=== PATIENT | male | born 1985 | race Caucasian/White ===

== ENCOUNTER 2018-11-15 14:46 | Inpatient (IN) | payer MEDICAID, OTHER | END 2018-11-16 13:10 | disposition left against medical advice (07) | LOC: ER 14:46 → OVERFLOW 23:04 → EAST 23:37 ==

== ENCOUNTER 2023-07-10 03:12 | Inpatient (IN) | payer MEDICAID ==
[~2023-07-10] VITALS: Ht 182.9 cm; Wt 76.0 kg
[2023-07-10 03:45] VITALS: PULSE 76; RESP 17; O2SAT 96
[2023-07-10] MEDS ORDERED: LACTATED RINGER'S 1,000 ML IV ONE (05:45)
[2023-07-10] MEDS ORDERED: CEFTRIAXONE SODIUM 2 GM in D5W 5% 100 ML IV ONE (05:45)
[2023-07-10] MEDS ORDERED: NALOXONE HCL 1MG/ML 2ML SYRINGE IV ONE ×2 (06:15)
[2023-07-10 06:46] LABS: Amphetamine Screen, Urine Pos (NEGATIVE); Barbiturate Scree,Urine Neg (NEGATIVE); Benzodiazephine Screen, Urine Neg (NEGATIVE); Cannabinoid Screen, Urine Pos (NEGATIVE); Cocaine Screen, Urine Neg (NEGATIVE); Opiate Scree,Urine Neg (NEGATIVE); Phencyclidine Screen, Urine Neg (NEGATIVE)
[2023-07-10 07:01] LABS: Basophils # (auto) 0.1 10 ^3/uL (0-0.2); Eosinophils # (auto) 0.4 10 ^3/uL (0-0.8); Eosinophils % (auto) 4.4 % (0.0-7.0); Hemoglobin 12.4 g/dL (13.5-17.5); Mean Corpuscular Hemoglobin 24.1 pg (28.0-32.0); Monocytes # (auto) 0.9 10 ^3/uL (0-1.3); Neutrophils # (auto) 5.1 10 ^3/uL (1.6-8.6); Nucleated Red Blood Cells % 0.1 %
[2023-07-10 07:01] LABS: Urine Bacteria NONE SEEN /hpf (None Seen); Urine Blood Negative /uL (Negative); Urine Clarity HAZY (Clear); Urine Color Yellow (Yellow); Urine Mucus MANY (None Seen); Urine Protein, UAD 2+ (Negative); Urine Specific Gravity 1.033 (1.001-1.035); Urine WBC 5 /hpf (0 - 3)
[2023-07-10 07:04] LABS: Basophils % (auto) 0.7 % (0.0-2.0); Hematocrit 37.6 % (41.0-53.0); Lymphocytes # (auto) 2.6 10 ^3/uL (0.4-5.4); Mean Corpuscular Hgb Conc. 33.1 g/dL (32.0-36.0); Mean Corpuscular Volume 72.9 fL (80.0-100.0); Monocytes % (auto) 10.1 % (0.0-12.0); Neutrophils % (auto) 55.8 % (37.0-80.0); Red Blood Cells 5.16 10^6/uL (4.5-5.90); Red Cell Distribution Width 14.1 % (11.8-14.3); White Blood Cell 9.1 10^3/uL (4.4-10.8)
[2023-07-10 07:22] LABS: Alanine Aminotransferase 25 U/L (7-40); Albumin 4.1 g/dL (3.2-4.8); Alkaline Phosphatase 61 U/L (46-116); Anion Gap 6 (5-15); Aspartate Aminotransferase 30 U/L (13-40); BUN/Creatinine Ratio 17.6 (10.0-20.0); Blood Urea Nitrogen 15 mg/dL (9-23); Calcium 8.2 mg/dL (8.5-10.1); Carbon Dioxide 30 mmol/L (20-30); Chloride 101 mmol/L (98-107); Glucose 91 mg/dL (74-106); Potassium 3.4 mmol/L (3.5-5.1); Sodium 137 mmol/L (136-145)
[2023-07-10 07:23] LABS: Bilirubin, Total 0.4 mg/dL (0.2-1.0); Total Protein 6.7 g/dL (5.7-8.2)
[2023-07-10 08:00] VITALS: PULSE 64; RESP 9; O2SAT 98
[2023-07-10] MEDS ORDERED: SODIUM CHLORIDE 0.9% 1,000 ML IV SCH (11:30)
[2023-07-10] MEDS ORDERED: MORPHINE SULFATE INJ 2 MG/ml SYRG IV PRN (11:30)
[2023-07-10] MEDS ORDERED: ACETAMINOPHEN 325 MG TAB PO PRN (11:30)
[2023-07-10] MEDS ORDERED: LORazepam 0.5 MG TAB PO PRN (11:30)
[2023-07-10] MEDS ORDERED: ONDANSETRON HCL 4 MG/2 ML VIAL IV PRN (11:30)
[2023-07-10] MEDS: HYDROcodone-ACET 5/325MG TAB PO PRN ×2 (14:38→20:26)
[2023-07-10 20:00] VITALS: BP 100/55; PULSE 81; RESP 14; TEMP 97.8; O2SAT 99
[2023-07-11] MEDS ORDERED: MULTIPLE VITAMIN TAB PO SCH (10:00)
== END 2023-07-10 21:32 | disposition left against medical advice (07) | DRG 384 ==
LOC: ER 03:12 → OVERFLOW 11:28
PROVIDERS: ADMIT Internal Medicine; ATTEND Internal Medicine
DX: S30.852A Superficial foreign body of penis, initial encounter (principal); G92.9 Unspecified toxic encephalopathy; E86.0 Dehydration; F15.10 Other stimulant abuse, uncomplicated; S31.22XA Laceration with foreign body of penis, initial encounter; F12.90 Cannabis use, unspecified, uncomplicated; N48.89 Other specified disorders of penis; Z53.29 Procedure and treatment not carried out because of patient's decision for other reasons; W44.8XXA Other foreign body entering into or through a natural orifice, initial encounter; Y93.89 Activity, other specified; Y92.89 Other specified places as the place of occurrence of the external cause; Y99.8 Other external cause status
CPT/HCPCS: 36415; 80053; 80307; 80320; 81001; 83605; 85025; 96361; 96365; 96375; G0378; J0696; J2405; J7060

== ENCOUNTER 2023-10-21 21:14 | Emergency (ER) | payer MEDICAID ==
[~2023-10-21] VITALS: Ht 182.9 cm; Wt 64.0 kg
[2023-10-21 21:57] LABS: Basophils # (auto) 0.1 10 ^3/uL (0-0.2); Basophils % (auto) 0.9 % (0.0-2.0); Eosinophils # (auto) 0.1 10 ^3/uL (0-0.8); Eosinophils % (auto) 1.3 % (0.0-7.0); Hematocrit 37.3 % (41.0-53.0); Hemoglobin 12.1 g/dL (13.5-17.5); Lymphocytes # (auto) 2.3 10 ^3/uL (0.4-5.4); Lymphocytes % (auto) 22.6 % (10.0-50.0); Mean Corpuscular Hemoglobin 23.2 pg (28.0-32.0); Mean Corpuscular Hgb Conc. 32.5 g/dL (32.0-36.0); Mean Corpuscular Volume 71.5 fL (80.0-100.0); Monocytes % (auto) 10.2 % (0.0-12.0); Neutrophils # (auto) 6.6 10 ^3/uL (1.6-8.6); Nucleated Red Blood Cells % 0.2 %; Red Blood Cells 5.21 10^6/uL (4.5-5.90); Red Cell Distribution Width 14.7 % (11.8-14.3); White Blood Cell 10.2 10^3/uL (4.4-10.8)
[2023-10-21] MEDS: LORazepam 2MG/ML-1ML VIAL IM ONE (22:05)
[2023-10-21 22:29] LABS: Acetaminophen < 2.0 UG/ML (10.0-20.0); Alanine Aminotransferase 23 U/L (7-40); Albumin 4.7 g/dL (3.2-4.8); Alkaline Phosphatase 80 U/L (46-116); Anion Gap 7 (5-15); Aspartate Aminotransferase 32 U/L (13-40); BUN/Creatinine Ratio 10.8 (10.0-20.0); Bilirubin, Total 0.6 mg/dL (0.2-1.0); Blood Urea Nitrogen 11 mg/dL (9-23); Carbon Dioxide 26 mmol/L (20-30); Chloride 104 mmol/L (98-107); Glucose 86 mg/dL (74-106); Potassium 3.7 mmol/L (3.5-5.1); Sodium 137 mmol/L (136-145); Total Protein 7.6 g/dL (5.7-8.2)
[2023-10-21 22:39] LABS: Salicylate < 3.0 mg/dL (2.8-20.0)
[2023-10-22 00:31] VITALS: PULSE 85; RESP 18; O2SAT 94
[2023-10-22] MEDS: LORazepam 0.5 MG TAB PO ONE ×2 (05:14→15:47)
[2023-10-22 08:00] VITALS: RESP 18; O2SAT 99
[2023-10-22 11:23] LABS: Amphetamine Screen, Urine Pos (NEGATIVE)
[2023-10-22 11:24] LABS: Barbiturate Scree,Urine Neg (NEGATIVE); Benzodiazephine Screen, Urine Neg (NEGATIVE)
[2023-10-22 11:26] LABS: Cannabinoid Screen, Urine Neg (NEGATIVE); Cocaine Screen, Urine Neg (NEGATIVE); Opiate Scree,Urine Neg (NEGATIVE); Phencyclidine Screen, Urine Neg (NEGATIVE)
[2023-10-22] MEDS: hydrOXYzine 25 MG TAB or CAP PO PRN (18:52)
[2023-10-22 20:41] VITALS: PULSE 91; RESP 16; O2SAT 100
[2023-10-22] MEDS: OLANZapine 5 MG TAB PO SCH (22:27)
[2023-10-23] MEDS: LORazepam 2MG/ML-1ML VIAL IM ONE (07:17)
[2023-10-23 19:45] VITALS: PULSE 82; RESP 16; O2SAT 92
[2023-10-24 12:26] VITALS: PULSE 82; RESP 20; O2SAT 97
[2023-10-24 12:27] VITALS: BP 115/57; PULSE 79; RESP 16; TEMP 97.5; O2SAT 99
== END 2023-10-24 12:32 | disposition short-term general hospital (02) ==
LOC: ER 21:14 → EDBD 21:14 → ER 10-24 12:32
DX: F29 Unspecified psychosis not due to a substance or known physiological condition (principal); F20.9 Schizophrenia, unspecified; F41.9 Anxiety disorder, unspecified
CPT/HCPCS: 36415; 80053; 80307; 80329; 85025; 96372; 99285; J2060